=== PATIENT | female | born 1955 | race Caucasian/White ===

== ENCOUNTER 2023-11-30 06:28 | Day surgery (SDC) | payer MEDICARE, OTHER, SELFPAY ==
[2023-11-30 10:48] VITALS: BMI 26.5
[2023-11-30 10:49] VITALS: BP 118/71; BMI 26.5
[2023-11-30 12:38] VITALS: BP 89/47
[2023-11-30 12:41] VITALS: BP 101/73
[2023-11-30 12:45] VITALS: BP 92/59
[2023-11-30 13:00] VITALS: BP 99/69
== END 2023-11-30 14:21 | disposition home or self-care (01) ==
LOC: SDS 06:28
PROVIDERS: ATTENDING PHYSICIAN Internal Medicine Gastroenterology
DX: Z12.11 Encounter for screening for malignant neoplasm of colon (principal); K52.9 Noninfective gastroenteritis and colitis, unspecified; K63.5 Polyp of colon; K57.30 Diverticulosis of large intestine without perforation or abscess without bleeding; K64.0 First degree hemorrhoids; Z86.010 Personal history of colon polyps; Z98.890 Other specified postprocedural states
CPT/HCPCS: 45385; 45380; 88305

== ENCOUNTER → 2024-06-12 12:46 | Outpatient (REF) | payer MEDICARE, OTHER, SELFPAY | LOC: WDC 12:46 | PROVIDERS: ATTENDING PHYSICIAN Obstetrics & Gynecology; FAMILY PHYSICIAN Family Medicine | DX: Z12.31 Encounter for screening mammogram for malignant neoplasm of breast (principal) | CPT/HCPCS: 77063; 77067 ==

== ENCOUNTER → 2025-06-14 13:32 | Outpatient (REF) | payer MEDICARE, OTHER, SELFPAY | LOC: WDC 13:32 | PROVIDERS: ATTENDING PHYSICIAN Obstetrics & Gynecology; FAMILY PHYSICIAN Family Medicine | DX: Z12.31 Encounter for screening mammogram for malignant neoplasm of breast (principal) | CPT/HCPCS: 77063; 77067 ==